=== PATIENT | female | born 1955 | race Caucasian/White ===

== ENCOUNTER 2020-04-09 07:36 | Inpatient (IN) | payer OTHER ==
[~2020-04-09] VITALS: Ht 160 cm; Wt 54.4 kg
[~2020-04-09 07:36] MED LIST: CLARITIN10 MG PO; DALIRESP500 MCG PO; LEVAQUIN500 MG PO; LIPITOR TAB 1010 MG PO; MEDROL DOSEPAK 24 MG PO; NEXIUM20 MG PO; SYMBICORT 160-1 INHA INH; SYNTHROID75 MCG PO; VENTOLIN/PROVE0.5 ML INH
[2020-04-09 08:14] LABS: HEMOGLOBIN 15.4 gm/dl (12.3-15.3); RED BLOOD COUNT 5.23 M/UL (4.00-5.10); WHITE BLOOD COUNT 22.3 K/UL (4.5-11.0)
[2020-04-09 08:27] LABS: BUN/CREATININE RATIO 12 (0-10)
[2020-04-09] MEDS ORDERED: IPRAT-ALBUT 0.5-3 ML INH (10:32)
[2020-04-09] MEDS ORDERED: LEVOTHYROXINE50 MCG PO (12:39)
[2020-04-09] MEDS ORDERED: MONTELUKAST SOD10 MG PO (12:41)
[2020-04-09] MEDS ORDERED: VENTOLIN HFA 66.7 GM INH (12:42)
[2020-04-09] MEDS ORDERED: SYMBICORT 16010.2 GM INH (12:49)
[2020-04-09] MEDS ORDERED: LOPRESSOR 25 MG25 MG PO (17:38)
[2020-04-10 04:54] LABS: RED BLOOD COUNT 5.13 M/UL (4.00-5.10)
[2020-04-10 05:05] LABS: WHITE BLOOD COUNT 42.4 K/UL (4.5-11.0)
[2020-04-10 08:22] LABS: ACINETOBACTER BAUMANNII Not Detected (Negative); CANDIDA ALBICANS Not Detected (Negative); CANDIDA KRUSEI Not Detected (Negative); CANDIDA TROPICALIS Not Detected (Negative); ENTEROCOCCUS Not Detected (Negative); ESCHERICHIA COLI Not Detected (Negative); HAEMOPHILUS INFLUENZAE Not Detected (Negative); KLEBSIELLA OXYTOCA Not Detected (Negative); KLEBSIELLA PNEUMONIAE Not Detected (Negative); KPC-CARBAPENEM-RESISTANCE GENE Not Detected (Negative); PROTEUS Not Detected (Negative); PSEUDOMONAS AERUGINOSA Not Detected (Negative); SERRATIA MARCESANS Not Detected (Negative); STAPHYLOCOCCUS AUREUS Not Detected (Negative); STREP AGALACTIAE (GROUP B) Not Detected (Negative); STREP PYOGENES (GROUP A) Not Detected (Negative); STREPTOCOCCUS Not Detected (Negative); mecA (METHICILLIN RESIST GENE Not Detected (Negative); vanA/B (VANCOMYCIN RESIST GENE Not Detected (Negative)
[2020-04-10 10:17] LABS: STAPHYLOCOCCUS DETECTED (Negative)
[2020-04-11 04:52] LABS: HEMOGLOBIN 11.9 gm/dl (12.3-15.3); RED BLOOD COUNT 4.09 M/UL (4.00-5.10); WHITE BLOOD COUNT 20.5 K/UL (4.5-11.0)
[2020-04-11 05:09] LABS: BUN/CREATININE RATIO 29 (0-10)
[2020-04-12 06:30] LABS: HEMOGLOBIN 11.6 gm/dl (12.3-15.3); RED BLOOD COUNT 4.01 M/UL (4.00-5.10)
[2020-04-12 06:31] LABS: WHITE BLOOD COUNT 12.1 K/UL (4.5-11.0)
[2020-04-12 06:58] LABS: BUN/CREATININE RATIO 36 (0-10)
[2020-04-13 05:19] LABS: HEMOGLOBIN 12.2 gm/dl (12.3-15.3); RED BLOOD COUNT 4.23 M/UL (4.00-5.10); WHITE BLOOD COUNT 10.4 K/UL (4.5-11.0)
[2020-04-13 05:32] LABS: BUN/CREATININE RATIO 49 (0-10)
[2020-04-14 05:43] LABS: RED BLOOD COUNT 4.47 M/UL (4.00-5.10); WHITE BLOOD COUNT 8.5 K/UL (4.5-11.0)
[2020-04-14 06:07] LABS: BUN/CREATININE RATIO 45 (0-10)
[2020-04-15 02:27] LABS: HEMOGLOBIN 14.3 gm/dl (12.3-15.3); RED BLOOD COUNT 4.83 M/UL (4.00-5.10)
[2020-04-15 02:40] LABS: WHITE BLOOD COUNT 10.7 K/UL (4.5-11.0)
[2020-04-15 02:49] LABS: BUN/CREATININE RATIO 38 (0-10)
--- NOTE | 2020-04-15 16:05 | NUR ---
room air o2 sat of 88%.
[2020-04-16] MEDS ORDERED: ATORVASTATIN CA20 MG PO (16:17)
[2020-04-16] MEDS ORDERED: LOPRESSOR 25 MG25 MG PO (16:17)
[2020-04-16] MEDS ORDERED: FUROSEMIDE20 MG PO (16:17)
[2020-04-16] MEDS ORDERED: CLOPIDOGREL75 MG PO (16:17)
[2020-04-16] MEDS ORDERED: LISINOPRIL10 MG PO (16:58)
--- NOTE | 2020-04-16 18:01 | NUR ---
PATIENT VOIDED WITH NO DIFFICULTY
== END 2020-04-16 18:21 | disposition home or self-care (01) | DRG 870 ==
LOC: ER1 07:36 → PROG CARE 10:02 → CCU 10:02 → CDU 10:02 → CCU 13:59 → PROG CARE 04-14 17:41 → MED SURG 4 04-15 17:21
PROVIDERS: Emergency Medicine; Internal Medicine Cardiovascular Disease; Internal Medicine Pulmonary Disease; Physician Assistant Medical; ADMIT Internal Medicine
PROC: 02HV33Z Insertion of Infusion Device into Superior Vena Cava, Percutaneous Approach (ICD-10-PCS; principal; 2020-04-09)
PROC: B548ZZA Ultrasonography of Superior Vena Cava, Guidance (ICD-10-PCS; 2020-04-09)
PROC: 5A1955Z Respiratory Ventilation, Greater than 96 Consecutive Hours (ICD-10-PCS; 2020-04-10)
PROC: 0BH17EZ Insertion of Endotracheal Airway into Trachea, Via Natural or Artificial Opening (ICD-10-PCS; 2020-04-10)
PROC: 0DH67UZ Insertion of Feeding Device into Stomach, Via Natural or Artificial Opening (ICD-10-PCS; 2020-04-10)
PROC: 3E0G76Z Introduction of Nutritional Substance into Upper GI, Via Natural or Artificial Opening (ICD-10-PCS; 2020-04-10)
PROC: 4A023N7 Measurement of Cardiac Sampling and Pressure, Left Heart, Percutaneous Approach (ICD-10-PCS; 2020-04-15)
PROC: B215YZZ Fluoroscopy of Left Heart using Other Contrast (ICD-10-PCS; 2020-04-15)
PROC: B211YZZ Fluoroscopy of Multiple Coronary Arteries using Other Contrast (ICD-10-PCS; 2020-04-15)
DX: A41.9 Sepsis, unspecified organism (principal); R65.21 Severe sepsis with septic shock; J96.21 Acute and chronic respiratory failure with hypoxia; J96.22 Acute and chronic respiratory failure with hypercapnia; J18.9 Pneumonia, unspecified organism; I50.21 Acute systolic (congestive) heart failure; I21.A1 Myocardial infarction type 2; E87.2 Acidosis; J44.1 Chronic obstructive pulmonary disease with (acute) exacerbation; J44.0 Chronic obstructive pulmonary disease with (acute) lower respiratory infection; I51.81 Takotsubo syndrome; I51.7 Cardiomegaly; I10 Essential (primary) hypertension; E78.5 Hyperlipidemia, unspecified; F17.210 Nicotine dependence, cigarettes, uncomplicated; Z20.822 Contact with and (suspected) exposure to COVID-19; E03.9 Hypothyroidism, unspecified; R73.9 Hyperglycemia, unspecified; K21.9 Gastro-esophageal reflux disease without esophagitis; I25.10 Atherosclerotic heart disease of native coronary artery without angina pectoris; R34 Anuria and oliguria; T38.0X5A Adverse effect of glucocorticoids and synthetic analogues, initial encounter; I11.0 Hypertensive heart disease with heart failure; J30.9 Allergic rhinitis, unspecified; Z90.710 Acquired absence of both cervix and uterus; I25.2 Old myocardial infarction; Z82.49 Family history of ischemic heart disease and other diseases of the circulatory system; Z82.3 Family history of stroke; Z88.6 Allergy status to analgesic agent; Z88.0 Allergy status to penicillin; Z88.8 Allergy status to other drugs, medicaments and biological substances; Z79.899 Other long term (current) drug therapy; Z99.81 Dependence on supplemental oxygen; Z79.01 Long term (current) use of anticoagulants
CPT/HCPCS: ECHO; 0240U; 31500; 36415; 36600; 51702; 70450; 71045; 71275; 80048; 80053; 80061; 82550; 82553; 82803; 82962; 83036; 83605; 83735; 83874; 83880; 84484; 85025; 85027; 85379; 85610; 85730; 86140; 87040; 87077; 87150; 87186; 92526; 92610; 93005; 93306; 94002; 94003; 94640; 94660; 94664; 94760; 96365; 96366; 96368; 97116-GP-CQ; 97162; 97530-GP-CQ; 99152; 99285; C1751; C1769; C1887; C1894; C9113; J0696; J1160; J1644; J1650; J1940; J1956; J2020; J2060; J2185; J2250; J2704; J2920; J2930; J3010; J7030; J7040; J7070; Q9967

== ENCOUNTER → 2020-05-15 | Outpatient (CLI) | payer OTHER ==
[~2020-05-15] MED LIST changes: +ATORVASTATIN CA20 MG PO; +CLOPIDOGREL75 MG PO; +FUROSEMIDE20 MG PO; +IPRAT-ALBUT 0.5-3 ML INH; +LEVOTHYROXINE50 MCG PO; +LISINOPRIL10 MG PO; +LOPRESSOR 25 MG25 MG PO; +MONTELUKAST SOD10 MG PO; +SYMBICORT 16010.2 GM INH; +VENTOLIN HFA 66.7 GM INH
== END ==
LOC: HEART 5 10:46
DX: R93.89 Abnormal findings on diagnostic imaging of other specified body structures (principal); I24.9 Acute ischemic heart disease, unspecified; J30.9 Allergic rhinitis, unspecified; J44.9 Chronic obstructive pulmonary disease, unspecified
CPT/HCPCS: 71046; 94060; 94729

== ENCOUNTER → 2020-06-16 | Outpatient (CLI) | payer OTHER | LOC: HEART 5 05-22 14:30 | DX: R06.02 Shortness of breath (principal); I08.1 Rheumatic disorders of both mitral and tricuspid valves; I27.20 Pulmonary hypertension, unspecified | CPT/HCPCS: 93306 ==